=== PATIENT | female | born 1990 | race Caucasian/White ===

== ENCOUNTER 2017-10-23 18:12 | Outpatient (CLI) | payer MEDICAID ==
[2017-10-23 20:32] LABS: ADD MAN DIFF? NO
[2017-10-23 20:33] LABS: WHITE BLOOD COUNT 12.6 10^3/ul (4.8-10.8)
[2017-10-23 20:33] LABS: BASOPHILS % 0.1 % (0.0-2.0); EOSINOPHILS # 0.1 10^3/ul (0.0-0.5); EOSINOPHILS % 0.6 % (0.0-7.0); HEMATOCRIT 31.1 % (37.0-47.0); HEMOGLOBIN 10.7 g/dl (12.0-16.0); LYMPHOCYTES # 1.2 10^3/ul (0.8-2.9); LYMPHOCYTES % 9.5 % (15.0-51.0); MEAN CORPUSCULAR HEMOGLOBIN 31.4 pg (29.0-33.0); MEAN CORPUSCULAR HGB CONC 34.4 g/dl (32.0-37.0); MEAN CORPUSCULAR VOLUME 91.2 fl (82.0-101.0); MONOCYTE # 1.2 10^3/ul (0.3-0.9); MONOCYTES % 9.4 % (0.0-11.0); NEUTROPHIL # 9.7 10^3/ul (1.6-7.5); NEUTROPHILS % 77.1 % (39.0-77.0); PLATELET COUNT 188 10^3/UL (140-415); RED BLOOD COUNT 3.41 10^6/ul (4.20-5.40); RED CELL DISTRIBUTION WIDTH 13.6 % (11.5-14.5)
[2017-10-23 20:39] LABS: ADD UMIC NO; UR ASCORBIC ACID NEGATIVE (NEGATIVE); UR BILIRUBIN (Dip) NEGATIVE (NEGATIVE); UR BLOOD (Dip) NEGATIVE (NEGATIVE); UR CLARITY CLEAR (CLEAR); UR COLOR YELLOW (YELLOW); UR GLUCOSE (Dip) NEGATIVE (NEGATIVE); UR KETONES (Dip) NEGATIVE (NEGATIVE); UR LEUKOCYTE ESTERASE (Dip) NEGATIVE Leu/ul (NEGATIVE); UR NITRITE (Dip) NEGATIVE (NEGATIVE); UR SPECIFIC GRAVITY (Dip) 1.012 (1.003-1.030); UR TOTAL PROTEIN (Dip) NEGATIVE (NEGATIVE); UR UROBILINOGEN (Dip) NEGATIVE (NEGATIVE)
[2017-10-23] MEDS: ACETAMINOPHEN 325 MG TAB PO (21:40)
== END 2017-10-23 22:21 | disposition home or self-care (01) ==
LOC: OBT 18:12 → L-D 18:12 → OBT 22:21
DX: O36.8130 Decreased fetal movements, third trimester, not applicable or unspecified (principal); O26.893 Other specified pregnancy related conditions, third trimester; M79.1 Myalgia; Z3A.35 35 weeks gestation of pregnancy
CPT/HCPCS: 76818; 81003; 85025; 87086

== ENCOUNTER 2017-10-23 22:30 | Emergency (ER) | payer MEDICAID | END 2017-10-23 23:55 | disposition home or self-care (01) | LOC: E/R 23:55 | DX: O99.513 Diseases of the respiratory system complicating pregnancy, third trimester (principal); R05 Cough; Z3A.36 36 weeks gestation of pregnancy | CPT/HCPCS: 87400; 99283 ==

== ENCOUNTER 2017-11-22 18:26 | Inpatient (IN) | payer MEDICAID ==
[2017-11-22] MEDS ORDERED: CARBOPROST 250 MCG INJ IM (19:00)
[2017-11-22] MEDS ORDERED: DINOPROSTONE 10 MG VAG SUPP VAG (19:00)
[2017-11-22] MEDS ORDERED: MISOPROSTOL 200 MCG TAB PR (19:00)
[2017-11-22] MEDS ORDERED: LIDOCAINE 1% (MPF) 30 ML INJ INJ (19:00)
[2017-11-22] MEDS ORDERED: IBUPROFEN 600 MG TAB PO (19:00)
[2017-11-22] MEDS ORDERED: OXYTOCIN 30 UNITS/LR 500 ML IV (19:00)
[2017-11-22] MEDS ORDERED: METHYLERGONOVINE 0.2 MG INJ IM (19:00)
[2017-11-22 19:13] LABS: ADD MAN DIFF? NO
[2017-11-22] MEDS: LACTATED RINGER'S 1,000 ML IV (19:14)
[2017-11-22 19:15] LABS: WHITE BLOOD COUNT 9.3 10^3/ul (4.8-10.8)
[2017-11-22 19:15] LABS: BASOPHILS % 0.3 % (0.0-2.0); EOSINOPHILS # 0.2 10^3/ul (0.0-0.5); EOSINOPHILS % 1.6 % (0.0-7.0); HEMATOCRIT 32.7 % (37.0-47.0); HEMOGLOBIN 11.5 g/dl (12.0-16.0); LYMPHOCYTES % 21.6 % (15.0-51.0); MEAN CORPUSCULAR HEMOGLOBIN 31.9 pg (29.0-33.0); MEAN CORPUSCULAR HGB CONC 35.2 g/dl (32.0-37.0); MEAN CORPUSCULAR VOLUME 90.8 fl (82.0-101.0); MEAN PLATELET VOLUME 10.5 fl (7.4-10.4); MONOCYTE # 0.8 10^3/ul (0.3-0.9); MONOCYTES % 9.1 % (0.0-11.0); NEUTROPHIL # 6.1 10^3/ul (1.6-7.5); PLATELET COUNT 213 10^3/UL (140-415); RED CELL DISTRIBUTION WIDTH 13.4 % (11.5-14.5)
[2017-11-22 19:29] LABS: INR 0.97
[2017-11-22 19:37] LABS: ALANINE AMINOTRANSFERASE 24 IU/L (13-69); ALBUMIN 3.6 g/dl (3.3-4.9); ALBUMIN/GLOBULIN RATIO 1.12; ALKALINE PHOSPHATASE 173 IU/L (42-121); ANION GAP 13 (8-16); ASPARTATE AMINO TRANSFERASE 20 IU/L (15-46); BILIRUBIN,INDIRECT 0.1 mg/dl (0-1.1); BILIRUBIN,TOTAL 0.1 mg/dl (0.2-1.3); BLOOD UREA NITROGEN 9 mg/dl (7-20); CALCIUM 8.8 mg/dl (8.4-10.2); CARBON DIOXIDE 20 mmol/L (21-31); CHLORIDE 108 mmol/L (97-110); CREATININE 0.56 mg/dl (0.44-1.00); GLUCOSE 62 mg/dl (70-220); POTASSIUM 3.8 mmol/L (3.5-5.1); SODIUM 137 mmol/L (135-144); TOTAL PROTEIN 6.8 g/dl (6.1-8.1)
[2017-11-22 20:30] LABS: HEPATITIS B SURFACE ANTIGEN NEGATIVE (NEGATIVE)
[2017-11-23] MEDS: LACTATED RINGER'S 1,000 ML IV ×3 (03:14→11:53)
[2017-11-23] MEDS: OXYTOCIN 30 UNITS/LR 500 ML IV ×4 (05:58→17:59)
[2017-11-23] MEDS ORDERED: FENTAnyl 2MCG/ML-ROPIV 0.2% 0 ML (10:22)
[2017-11-23] MEDS ORDERED: FENTAnyl 2MCG/ML-ROPIV 0.2% 100 ML (10:24)
[2017-11-23] MEDS: FENTAnyl 2MCG/ML-ROPIV 0.2% 100 ML BAG EPI (11:53)
[2017-11-23] MEDS: ONDANSETRON 4 MG INJ IV (11:55)
[2017-11-23] MEDS ORDERED: NALOXONE (0.4 MG/ML) INJ IV (12:00)
[2017-11-23] MEDS ORDERED: DIPHENHYDRAMINE 50 MG INJ IV (12:00)
[2017-11-23 15:26] LABS: RAPID PLASMA REAGIN NONREACTIVE (NR)
[2017-11-23] MEDS ORDERED: WITCH HAZEL/GLYCERIN PAD PR (16:30)
[2017-11-23] MEDS ORDERED: BENZOCAINE 20% 56 ML SPRAY TOP (16:30)
[2017-11-23] MEDS ORDERED: DIBUCAINE 1% 30 GM OINT TOP (16:30)
[2017-11-23] MEDS ORDERED: ACETAMINOPHEN 325 MG TAB PO (16:30)
[2017-11-23] MEDS ORDERED: ONDANSETRON 4 MG INJ IV (16:30)
[2017-11-23] MEDS ORDERED: HYDROCODONE/APAP (5/325) TAB PO ×2 (16:30)
[2017-11-23] MEDS ORDERED: OXYCODONE/ASPIRIN (4.88/325) TAB PO ×2 (16:30)
[2017-11-23] MEDS: IBUPROFEN 600 MG TAB PO ×2 (17:51→23:51)
[2017-11-23] MEDS: LANOLIN 7 GM TUBE TOP (23:51)
[2017-11-24] MEDS: IBUPROFEN 600 MG TAB PO ×4 (05:55→23:52)
[2017-11-24 08:08] LABS: ADD MAN DIFF? NO
[2017-11-24 08:21] LABS: WHITE BLOOD COUNT 11.9 10^3/ul (4.8-10.8)
[2017-11-24 08:21] LABS: BASOPHILS % 0.3 % (0.0-2.0); EOSINOPHILS # 0.2 10^3/ul (0.0-0.5); EOSINOPHILS % 1.8 % (0.0-7.0); HEMATOCRIT 33.7 % (37.0-47.0); HEMOGLOBIN 11.9 g/dl (12.0-16.0); LYMPHOCYTES # 2.3 10^3/ul (0.8-2.9); LYMPHOCYTES % 19.5 % (15.0-51.0); MEAN CORPUSCULAR HEMOGLOBIN 32.2 pg (29.0-33.0); MEAN CORPUSCULAR HGB CONC 35.3 g/dl (32.0-37.0); MEAN CORPUSCULAR VOLUME 91.3 fl (82.0-101.0); MEAN PLATELET VOLUME 10.7 fl (7.4-10.4); MONOCYTE # 0.8 10^3/ul (0.3-0.9); NEUTROPHIL # 8.3 10^3/ul (1.6-7.5); NEUTROPHILS % 69.6 % (39.0-77.0); PLATELET COUNT 188 10^3/UL (140-415); RED BLOOD COUNT 3.69 10^6/ul (4.20-5.40); RED CELL DISTRIBUTION WIDTH 13.5 % (11.5-14.5)
[2017-11-24] MEDS: SENNA/DOCUSATE NA (8.6MG/50MG) TAB PO ×2 (10:04→21:29)
[2017-11-25] MEDS: IBUPROFEN 600 MG TAB PO (05:50)
[2017-11-25] MEDS: SENNA/DOCUSATE NA (8.6MG/50MG) TAB PO (08:59)
[2017-11-25] MEDS ORDERED: MEASLES,MUMPS,RUBELLA VACCINE INJ SC* (09:00)
== END 2017-11-25 13:20 | disposition home or self-care (01) | DRG 775 ==
LOC: PP1 11-23 15:37 → L-D 18:26 → PP1 11-23 15:46
PROC: 10E0XZZ Delivery of Products of Conception, External Approach (ICD-10-PCS; principal; 2017-11-23)
PROC: 3E033VJ Introduction of Other Hormone into Peripheral Vein, Percutaneous Approach (ICD-10-PCS; 2017-11-23)
DX: O48.0 Post-term pregnancy (principal); Z37.0 Single live birth; Z3A.40 40 weeks gestation of pregnancy
CPT/HCPCS: 62319; 76815; 80053; 82962; 85025; 85610; 85730; 86592; 86900; 86901; 87340